=== PATIENT | female | born 1995 | race Caucasian/White ===

== ENCOUNTER → 2018-04-06 14:50 | Observation (INO) ==
[2018-04-06 14:11] LABS: Basophils % 0.1 %; Eosinophils # 0.1 K/mcL (0.0-0.6); Hematocrit 37.1 % (35.3-44.9); Hemoglobin 12.5 g/dL (11.5-15.4); Immature Granulocytes % 0.6 % (0-4); Lymphocytes # 1.4 K/mcL (0.6-4.6); Lymphocytes % 15.7 %; Mean Corpuscular HGB Conc 33.7 g/dL (31.6-35.5); Mean Corpuscular Hemoglobin 29.6 pg (28.0-33.3); Mean Corpuscular Volume 87.7 fL (83.0-100.0); Mean Platelet Volume 11.4 fL (9.4-12.4); Monocytes # 0.7 K/mcL (0.0-1.3); Monocytes % 7.7 %; Neutrophils # 6.6 K/mcL (1.6-8.9); Platelet Count 138 K/mcL (140-400); Red Blood Count 4.23 M/mcL (3.82-4.97); Red Cell Distribution Width 12.6 % (11.5-14.5); Segmented Neutrophils % 74.9 %
[2018-04-06 14:32] LABS: Amphetamine Screen,Urine Negative ng/mL (Cutoff=1000); Barbiturate Screen,Urine Negative ng/mL (Cutoff=200); Benzodiazepines Screen,Urine Negative ng/mL (Cutoff=200); Cannabinoid Screen,Urine Negative ng/mL (Cutoff = 50); Cocaine Screen,Urine Negative ng/mL (Cutoff= 300); Opiate Screen,Urine Negative ng/mL (Cutoff=300); Phencyclidine Screen,Urine Negative ng/mL (Cutoff=25)
[2018-04-06 14:32] LABS: Alanine Aminotransferase 16 Units/L (7-52); Aspartate Amino Transferase 15 Units/L (13-39); BUN/Creatinine Ratio 16 (6-26); Blood Urea Nitrogen 8 mg/dL (6-20); Lactate Dehydrogenase 128 Units/L (140-271); Protein/Creatinine Ratio,Urine 0.13 mg/mg (0.00-0.20); Uric Acid 4.6 mg/dL (2.3-7.6); eGFR For Non-African Americans > 60 (> 60)
--- NOTE | 2018-04-06 14:50 | Discharge Summary ---
Date of Encounter: 04/06/18 Time of Encounter: 14:50 - Discharge Diagnosis (1) 34 weeks gestation of Priority: Primary Status: Acute Comments: Patient admitted for observation (2) Headache in , antepartum Priority: Secondary Status: Acute Comments: Patient reports she has not had Tylenol in a few days. Patient denies headache at this time (3) Elevated BP without diagnosis of hypertension Priority: Secondary Status: Acute Comments: Patient reports she took BP at home and was 140/88 & 140/90 PIH labs WNL Protein creat ration WNL Serial BPs WNL (4) NST (non-stress test) reactive on surveillance Priority: Secondary Status: Acute Comments: Patient reports good movement FHR baseline 140 bpm moderate variability +15x15 accels no decels noted. Cat. 1 tracing. - Discharge Medications Home Medications: Vit Calc,Iron,Folic [ Vitamins] 1 tab PO DAILY 04/06/18 [ History] Allergies/Adverse Reactions: 3 Allergy/AdvReac Type Severity Reaction Status Date / Time No Known Allergies Allergy Verified 04/06/18 13:34 Data Procedures and tests throughout hospitalization: Laboratory Tests 04/06/18 04/06/18 04/06/18 13:27 13:28 13:28 WBC 8.8 RBC 4.23 Hgb 12.5 Hct 37.1 MCV 87.7 MCH 29.6 MCHC 33.7 RDW 12.6 Plt Count 138 L MPV 11.4 Immature Gran % 0.6 Seg Neutrophils % 74.9 Lymphocytes % 15.7 Monocytes % 7.7 Eosinophils % 1.0 Basophils % 0.1 Neutrophils # 6.6 Lymphocytes # 1.4 Monocytes # 0.7 Eosinophils # 0.1 Basophils # 0.0 BUN Creatinine Est GFR ( Amer) Est GFR (Non-Af Amer) BUN/Creatinine Ratio Uric Acid AST ALT Lactate Dehydrogenase Urine Creatinine 38 Protein/Creatinin Ratio 0.13 Urine Total Protein 5 Urine Opiates Screen Negative Ur Barbiturates Screen Negative Ur Phencyclidine Scrn Negative Ur Amphetamines Screen Negative U Benzodiazepines Scrn Negative Urine Cocaine Screen Negative U Marijuana (THC) Screen Negative Ur Drug Screen Interp See Below 04/06/18 13:28 WBC RBC Hgb Hct MCV MCH MCHC RDW Plt Count MPV Immature Gran % Seg Neutrophils % Lymphocytes % Monocytes % Eosinophils % Basophils % Neutrophils # Lymphocytes # Monocytes # Eosinophils # Basophils # BUN 8 Creatinine 0.50 L Est GFR ( Amer) > 60 Est GFR (Non-Af Amer) > 60 BUN/Creatinine Ratio 16 Uric Acid 4.6 AST 15 ALT 16 Lactate Dehydrogenase 128 L Urine Creatinine Protein/Creatinin Ratio Urine Total Protein Urine Opiates Screen Ur Barbiturates Screen Ur Phencyclidine Scrn Ur Amphetamines Screen U Benzodiazepines Scrn Urine Cocaine Screen U Marijuana (THC) Screen Ur Drug Screen Interp Labs on day of discharge: Labs from last 24 hours 04/06/18 04/06/18 04/06/18 13:28 13:28 13:28 WBC 8.8 RBC 4.23 Hgb 12.5 Hct 37.1 MCV 87.7 MCH 29.6 MCHC 33.7 RDW 12.6 Plt Count 138 L MPV 11.4 Immature Gran % 0.6 Seg Neutrophils % 74.9 Lymphocytes % 15.7 Monocytes % 7.7 Eosinophils % 1.0 Basophils % 0.1 Neutrophils # 6.6 Lymphocytes # 1.4 Monocytes # 0.7 Eosinophils # 0.1 Basophils # 0.0 BUN 8 Creatinine 0.50 L Est GFR ( Amer) > 60 Est GFR (Non-Af Amer) > 60 BUN/Creatinine Ratio 16 Uric Acid 4.6 AST 15 ALT 16 Lactate Dehydrogenase 128 L Urine Creatinine 38 Protein/Creatinin Ratio 0.13 Urine Total Protein 5 Urine Opiates Screen Ur Barbiturates Screen Ur Phencyclidine Scrn Ur Amphetamines Screen U Benzodiazepines Scrn Urine Cocaine Screen U Marijuana (THC) Screen Ur Drug Screen Interp 04/06/18 13:27 WBC RBC Hgb Hct MCV MCH MCHC RDW Plt Count MPV Immature Gran % Seg Neutrophils % Lymphocytes % Monocytes % Eosinophils % Basophils % Neutrophils # Lymphocytes # Monocytes # Eosinophils # Basophils # BUN Creatinine Est GFR ( Amer) Est GFR (Non-Af Amer) BUN/Creatinine Ratio Uric Acid AST ALT Lactate Dehydrogenase Urine Creatinine Protein/Creatinin Ratio Urine Total Protein Urine Opiates Screen Negative Ur Barbiturates Screen Negative Ur Phencyclidine Scrn Negative Ur Amphetamines Screen Negative U Benzodiazepines Scrn Negative Urine Cocaine Screen Negative U Marijuana (THC) Screen Negative Ur Drug Screen Interp See Below Date of admission: 04/06/18 13:13 Discharging clinician: Ashli Dickey Anticipated date of discharge: 04/06/18 - Patient Status Disposition: Home, Self-Care Condition: Good Functional capacity at discharge: independent ambulation - Discharge Instructions Follow Up With: Ashli Dickey CNM [Non-Partnered Physician] - - Diet and Activity Activity: increase activity as tolerated Diet: regular diet Hospital Course VP LAB Hospital course: Patient is a 22 y/o at 34w4d presents to labor and delivery with complaints of history of headache and elevated BPs at home. Patient denies visual disturbances or epigastric pain. Patient denies any abnormal edema. Patient reports mild edema in feet after working. Patient reports good movement. Denies LOF, VB or contractions. Time Attestation: Total time spent providing and/or coordinating discharge services: Time Spent: Less than 30 minutes Exam - Constitutional General appearance IM: A&O X 3, pleasant, answers questions appropriately - Respiratory Respiratory exam: Present: CTAB - Cardiovascular Cardiovascular exam IM: Present: RRR, +S1, +S2 - GI/Abdominal GI/Abdominal exam IM: normal bowel sounds - Extremities Exam Extremities exam IM: Present: full ROM, normal capillary refill, normal inspection - Neurological Exam Neurological exam: alert, oriented X3, reflexes normal Additional comments: 2+DTRs no clonus - Other Additional findings: FHR 140 bpm moderate variability +15x15 accels no decels noted. Occasional contraction noted. Cat 1 tracing. - VTE Reasons for not Prescribing Prophylaxis: Treatment not Indicated - Low risk for VTE
== END | disposition home or self-care (01) ==
LOC: 1NENULAB
PROVIDERS: ADMIT Advanced Practice Midwife; ATTEND Advanced Practice Midwife